=== PATIENT | female | born 1965 | race Caucasian/White ===

== ENCOUNTER 2025-03-02 10:53 | Outpatient (AMB) | payer MEDICARE, OTHER, SELFPAY ==
[2025-03-02 10:56] VITALS: BMI 28.3
--- NOTE | 2025-03-02 10:56 | A.PHYSOV ---
Vital Signs 03/02/25 10:56 Height 4 ft 11 in Weight 140 lb BMI 28.3 Intake Visit Reasons: left shoulder injection & discuss back inj Intake Note: Patient is fa 60 year old female here to follow up to left C7-T1 zayda on 01/06/25 and for a left shoulder injection. 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 Robert Lechuga is a 60-year-old female seen in evaluation today for cervical radiculopathy. Patient underwent C7-T1 ZAYDA on 01/07/2020 T5. Patient reports 80% reduction of her pain. She reports less numbness of the left upper extremity as well as a improved range of motion of her cervical spine. She is overall very happy with her results. Patient reports 10/02 right-sided low back pain consistent with sacroiliitis. She underwent her last right SI joint injection on 10/11/2024 with 70% reduction of her pain. She reports that her pain has worsened despite performing her physician directed home exercise plan and using her medications as prescribed. Patient is also requesting left subacromial injection today. Her last was in September. Procedure: C7-T1 ZAYDA 09/10/2023 60% reduction of her pain C7-T1 ZAYDA 04/14/2024 80% reduction of her pain Right SI joint injection 04/14/2024 60% reduction of her pain Right SI joint injection 10/11/2024 70% reduction of her pain C7-T1 ZAYDA 01/06/2025 80% reduction of her pain Left subacromial injection 03/02/2025 [facility], [facility] Medical History (Updated 03/02/25 @ 16:47 by CHERRI Cason) Hypercholesterolemia Hypertension End stage renal disease Coronary disease Surgical History Kidney transplanted Social History Alcohol intake: current Alcohol intake frequency: does not drink Patient Tobacco Use Status: Never used Tobacco Use of substances other than those prescribed or required for medical reasons: No Review of Systems Narrative Neck pain, low back pain left shoulder pain, no weakness or incontinence. Physical Exam Exam Exam: Cervical Spine: Examination of the cervical spine, she is less tender to the left upper trapezius. Full range of motion of her cervical spine. Special Tests: Axial Compression test: Negative Spurlings test: Negative Lhermitte's sign is Negative Upper Extremities: She is tender to the left lateral deltoid. Full range of motion of her shoulder in all planes. 5/5 rotator cuff strength throughout. She has a positive Neer test. Neuro: Sensation: Intact to upper extremities bilateral to light touch Strength C5 (Elbow Flexion): 5/5 on the left and 5/5 on the right. C6 (Elbow Ext): 5/5 on the left and 5/5 on the right. C7 (Elbow Ext): 5/5 on the left and 5/5 on the right. C8 (Finger Flex): 5/5 on the left and 5/5 on the right. T1 (Finger Abd/Add): 5/5 on the left and 5/5 on the right. DTR: C5 (Biceps): Left 2 Right 2 C6 (Brachioradialis): Left 2 Right 2 C7 (Triceps): Left 2 Right 2 Galindo sign: Negative No pathologic clonus. No involuntary movement. Lumbar Spine: Examination of her lumbar spine, there is no visible swelling or deformity. She is tender to lower lumbar facets. She is otherwise nontender. Full range of motion of her lumbar spine. Special Tests: Lhermittes sign was negative Heel Toe walk is normal Left straight leg raise: Negative Right straight leg raise: Negative Special tests Jenny test is positive right Ganslen's test is positive right SI Joint compression test positive right Izzy test negative Piriformis stretch is negative Lower Extremities: Full range of motion bilateral lower extremities. No calf pain or edema. Neuro: Sensation: Intact to lower extremities bilaterally Strength L2 (Psoas): 5/5 on the left and 5/5 on the right. L3 (Quads): 5/5 on the left and 5/5 on the right. L4 (Ant tibialis): 5/5 on the left and 5/5 on the right. L5 (EHL) 5/5 on the left and 5/5 on the right. S1 (Gastroc): 5/5 on the left and 5/5 on the right. DTR L4: (Patellar) Left 2 Right 2 S1: (Achilles) Left 2 Right 2 Babinski Downgoing No pathologic clonus. No involuntary movement. Vital Signs: BMI result Body Mass Index 28.3 Office Procedures AMB Shoulder Injection AMB Shoulder Injection Procedure Details: Left Subacromial injection Procedure: The patient was educated about risks, complications and benefits including but not limited to increased serum glucose, infection, nerve damage, bleeding, tendon/ligament damage and pain. We agree with a subacromial injection is the next best step in the treatment plan. Verbal consent was obtained. Using aseptic technique, the skin was cleansed with Betadine. Ethyl chloride was used to desensitize the skin. Using a posterior approach, 40 mg of Kenalog and 3 mL 2% lidocaine were injected using a 25-gauge inch and a half needle into the subacromial space. The patient tolerated the procedure well without immediate complication. Postinjection instructions were given. Shoulder Injection - : Right All charges added?: Procedure code (CPT) selection complete Office Meds Kenalog 40 mg/mL suspension for injection Performing Provider: CHERRI Cason Performing Location: [facility] Administered by: CHERRI Cason on 03/02/25 16:54 Dose Route Admin Location Dispensed Lot Number Expiration Date [facility] Field Operations Coordinator 40 mg intra-articular 1 mL [id number] [employer] Total Dispensed Waste 1 mL 0 % lidocaine (PF) 20 mg/mL (2 %) injection solution Performing Provider: CHERRI Cason Performing Location: [facility] Administered by: CHERRI Cason on 03/02/25 16:54 Dose Route Admin Location Dispensed Lot Number Expiration Date [facility] Field Operations Coordinator 60 mg intra-articular 50 mL [id number] Total Dispensed Waste 50 mL 0 % Assessment & Plan Assessment & Plan (1) Impingement syndrome of left shoulder: Code(s): M75.42 - Impingement syndrome of left shoulder Category: Medical (2) Sacroiliitis: Code(s): M46.1 - Sacroiliitis, not elsewhere classified Category: Medical (3) Cervical radiculopathy: Code(s): M54.12 - Radiculopathy, cervical region Category: Medical Plan Ms. Robert Lechuga is a 60-year-old female seen in evaluation today for cervical radiculitis left upper extremity. Patient responded well to C7-T1 ZAYDA with 70% reduction of her pain. She will continue her home exercise plan and medications as prescribed. Patient underwent right SI joint injection on 10/11/2024. Patient reports 70% reduction of her pain. Her pain has returned despite performing her physician directed home exercise plan and using her medications as prescribed. Patient is requesting repeat SI joint injection which I will obtain prior authorization for. Today she consented to left subacromial injection. She was given post-injection instructions, recommend: Moist heat compresses for 15 minutes up to 5 times daily. She should avoid repetitive overhead activities. We discussed the benefits of proper nutrition and exercise to maintain a healthy body weight to improve longevity and function. We also discussed the benefits of proper lifting techniques, core strengthening and proper posture. Thank you for allowing me to participate in the care of your patient. Orders: Orders AMB Shoulder Injection Today M75.42 - Impingement syndrome of left shoulder Coding Level of Care Code Tele Est Pt Level 3 (33337) Diagnoses Impingement syndrome of left shoulder M75.42 Sacroiliitis M46.1 Cervical radiculopathy M54.12 CPT Codes AMB Shoulder Injection - Hip/Bursa Injection - : Right ([id number])
== END 2025-03-02 11:26 | disposition home or self-care (01) ==
LOC: HO.HPHYS 10:53
PROVIDERS: PCP Internal Medicine; Visit Provider Physician Assistant
DX: M75.42 Impingement syndrome of left shoulder (principal); M46.1 Sacroiliitis, not elsewhere classified; M54.12 Radiculopathy, cervical region
CPT/HCPCS: 20610; 99213

== ENCOUNTER → 2025-03-02 10:53 | Outpatient (BNVA) | payer MEDICARE, OTHER, SELFPAY | PROVIDERS: PCP Internal Medicine; Visit Provider Physician Assistant | DX: M75.42 Impingement syndrome of left shoulder (principal); M46.1 Sacroiliitis, not elsewhere classified; M54.12 Radiculopathy, cervical region | CPT/HCPCS: 20610; 99212; J2003; J3301 ==

== ENCOUNTER 2025-03-12 11:35 | Outpatient (AMB) | payer MEDICARE, SELFPAY ==
[2025-03-12 11:39] VITALS: BMI 28.3
--- NOTE | 2025-03-12 11:39 | A.PHYSOV_ITS ---
Vital Signs 03/12/25 11:39 Height 4 ft 11 in Weight 140 lb BMI 28.3 Intake Visit Reasons: RT HIP INJECTION and F/U after injection Intake Note: Patient is a 60 year old female here to follow up after left C7-T1 VIRIDIANA. Patient would also like right hip injection. 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 The patient reports new, sudden onset of knee pain. She has read her 2022 imaging report for her shoulder which noted bone marrow edema, and she was informed by a second opinion physician that this finding is more common in the knees and could be a side effect of one of her medications. At home, she has been icing and elevating her knees and uses a vibration plate for 15 minutes daily. Regarding her other chronic pain issues, she reports a prior C7-T1 VIRIDIANA on 01/06/2025 neck injection provided approximately 50% pain relief. She presented to today's visit for bilateral hip cortisone injections. Pain Description - Onset: The patient reports a sudden onset of knee pain. - Location: Pain is located in both knees and both hips. - Interventions: A prior neck injection provided 50% pain relief. Procedures: C7-T1 VIRIDIANA 01/06/2025 50% reduction of her pain Bilateral hip bursal injection 03/12/2025 - Imaging: The patient reports a 2022 imaging study noted bone marrow edema in her shoulder. [facility] Medical History (Updated 03/12/25 @ 17:43 by CHERRI Cason) Hypercholesterolemia Hypertension End stage renal disease Coronary disease Surgical History Kidney transplanted Social History Alcohol intake: current Alcohol intake frequency: does not drink Patient Tobacco Use Status: Never used Tobacco Review of Systems Narrative Review of Systems - Musculoskeletal: Reports new onset bilateral knee pain and ongoing bilateral hip pain. - Neurological: Denies wobbling as previously noted. Physical Exam Exam Exam: Physical Exam Cervical spine: Less tender to bilateral upper trapezius. She has improved range of motion of her cervical spine at end range throughout. Negative Spurling's maneuver. Full range of motion bilateral upper extremities. Equal truss designer strength bilaterally. Lumbar Spine: Nontender to palpation over lumbar spine. Full range of motion. Special Tests: Lhermittes sign was negative Heel Toe walk is normal Left straight leg raise: Negative Right straight leg raise: Negative Special tests Jenny test is negative Ganslen's test is negative SI Joint compression test negative Izzy test negative Piriformis stretch is negative Lower Extremities: Markedly tender to bilateral greater trochanteric bursa. Neuro: Sensation: Intact to lower extremities bilaterally Strength L2 (Psoas): 5/5 on the left and 5/5 on the right. L3 (Quads): 5/5 on the left and 5/5 on the right. L4 (Ant tibialis): 5/5 on the left and 5/5 on the right. L5 (EHL) 5/5 on the left and 5/5 on the right. S1 (Gastroc): 5/5 on the left and 5/5 on the right. DTR L4: (Patellar) Left 2 Right 2 S1: (Achilles) Left 2 Right 2 Babinski Downgoing No pathologic clonus. No involuntary movement. Vital Signs: BMI result Body Mass Index 28.3 Office Procedures AMB Hip Injection AMB Hip Injection Procedure Details: Bilateral Greater trochanteric bursal injection: The risks, benefits and complications of the left greater trochanteric bursitis/gluteal tendinopathy were discussed with the patient, including but not limited to infection, increased serum glucose, nerve damage, bleeding and pain. All questions were answered to the patient's satisfaction. Verbal consent was obtained. The pa tient was eager to proceed. Patient was cleansed with Betadine, ethyl chloride was then used to desensitize the skin. Using an a 25-gauge needle 40 mg of Kenalog and 3 mL 2% lidocaine were injected over the left greater trochanter of maximal tenderness. The patient tolerated the procedure well without immediate complication. Postinjection instructions were given. The procedure was repeated on the right. Hip (Bursa) Injection - : Bilateral All charges added?: Procedure code (CPT) selection complete Office Meds Kenalog 40 mg/mL suspension for injection Performing Provider: CHERRI Cason Performing Location: [facility] Administered by: CHERRI Cason on 03/12/25 17:46 Dose Route Admin Location Dispensed Lot Number Expiration Date [facility] Flat Polisher 40 mg intrabursal 1 mL [id number] [employer] 2 Total Dispensed Waste 1 mL 0 % lidocaine (PF) 20 mg/mL (2 %) injection solution Performing Provider: CHERRI Cason Performing Location: [facility] Administered by: CHERRI Cason on 03/12/25 17:46 Dose Route Admin Location Dispensed Lot Number Expiration Date [facility] [employer]isher 60 mg intrabursal 5 mL [id number] [employer] Total Dispensed Waste 5 mL 40 % Assessment & Plan Assessment & Plan (1) Cervical radiculopathy: Code(s): M54.12 - Radiculopathy, cervical region Category: Medical (2) Greater trochanteric bursitis of both hips: Code(s): M70.61 - Trochanteric bursitis, right hip; M70.62 - Trochanteric bursitis, left hip Category: Medical Plan Pain Management - Analgesia: The patient notes her prior neck injection resulted in 50% pain improvement. - Adverse Effects: The patient expressed concern that bone marrow edema, a finding noted on prior shoulder imaging, may be a side effect of one of her c urrent medications. - Activities of Daily Living: The patient is performing daily vibration plate therapy for 15 minutes. - Aberrant Drug Related Behaviors: None discussed. Plan Patient was informed and verbally consented to the use of an ambient scribe for clinic note documentation during this visit. 1. Bilateral Hip Pain The patient presented for management of bilateral hip pain. She received bilateral cortisone injections during the visit and reported immediate improvement in her right hip post-injection. 2. Bilateral Knee Pain The patient reports new onset of bilateral knee pain and is concerned about the possibility of bone marrow edema as a medication side effect. It was explained that an X-ray would show arthritis while an MRI would be needed to assess for bone marrow edema. The patient decided to defer imaging at this time and will discuss the matter with her other physician. A prescription for physical therapy for her knees was provided. 3. Chronic Neck Pain The patient reports her prior neck injection provided 50% relief. No changes to the current management plan were made at this visit. Discussion Notes I discussed the patient's new onset knee pain and her concern about bone marrow edema. I explained that an X-ray would be appropriate to assess for arthritis, but an MRI is required to visualize bone marrow edema. The patient elected to postpone imaging to discuss this further with her other doctor. I agreed to her request for a physical therapy referral for her knees. We proceeded with planned bilateral hip cortisone injections for her hip pain. Patient Instructions - You were given bilateral hip cortisone injections today. - For your knee pain, continue icing and elevating your legs. - Try to avoid using a knee brace, as this can weaken the muscles. - A prescription for physical therapy for your knees has been provided. - Please follow up with your doctor in [place] to discuss your knee pain and concerns about medication side effects. Orders: Orders AMB Hip/Bursa Injection Today M70.61 - Trochanteric bursitis, right hip, M70.62 - Trochanteric bursitis, left hip Coding Level of Care Code Tele Est Pt Level 3 (86243) Diagnoses Cervical radiculopathy M54.12 Greater trochanteric bursitis of both hips M70.61; M70.62 CPT Codes AMB Hip Injection - Hip/Bursa Injection - : Bilateral ([id number])
--- OUTSIDE RECORDS SUMMARY | 2025-03-12 14:00 | XMS_ITS | Encounter Summary ---
Author Organization [facility] Address [address] [place] [address] Care Team Providers Care Route Contractor Name Role Phone Hannah Browne MD Primary Care Provider [phone] Reason for Visit * Reason Comments Consult PRODUCTION SORTER - R HAND MASS Pain PRODUCTION SORTER - R HAND MASS Mass PRODUCTION SORTER - R HAND MASS * Consultation (Routine) - Authorized Specialty Diagnoses / Procedures Referred By Ann-Marie calhoun Referred To Contact Hand Surgery / Orthopaedic Surgery Diagnoses Mass of right hand Shayna Keith NP 175 [facility] [address] [place] [address] Phone: tel: fax: Orthopedic Surgery [facility] 175 [facility] [address] [place] [address] Phone: tel: fax: Referral ID Status Reason Start Date Expiration Date Visits Requested Visits Authorized [id number] Authorized Specialty Services Required 02/13/2026 1 1 Encounter Details Date Type Department Care Team ([facility] st Contact Info) Description 03/12/2025 2:00 PM EST Consult Orthopedic Surgery [facility] 175 [facility] [address] [place] [address] Sloane Rodriguez PA 175 [facility] [address] [place] [address] Dupuytren's disease of finger with nodules without contracture (Primary Dx) Social History Tobacco Use Types Packs/Day Years Used Date Smoking Tobacco: Never Smokeless Tobacco: Never Alcohol Use Standard Drinks/Week Comments Never 0 (1 standard drink = 0.6 oz pur e alcohol) Housing Instability Answer Date Recorde d Are you worried that in the next 2 months you may not have stable housing? Patient declined 02/12/2025 Food Access & Nutrition Answer Date Rec orded Do you have access to a vari ety of food including fruits and vegetables? Patient declined 02/12/2025 Health Literacy Answer Date Recorded How often do you need to hav e someone help you when you read instructions, pamphlets, or other written material from your doctor or pharmacy? Patient declined 02/12/2025 Caregiver: How often do you need to have someone help you when you read instructions, pamphlets, or other written material from your doctor or pharmacy? Not on file 025 Financial Risk Answer Date Recorded How hard is it for you to pa y for the very basics like food, housing, medical care, and air conditioning / heating? Patient declined 02/12/2025 Transportation Answer Date Recorded Has the lack of transportati on kept you from meetings, work, or from getting things needed for daily living? Patient declined 02/12/2025 Has the lack of transportati on kept you from medical appointments or from getting medications? Patient declined 02/12/2025 Social Isolation Answer Date Recorded How often do you feel lonely or isolated from those around you? Patient declined 02/12/2025 Food Risk Answer Date Recorded Within the past 12 months we worried whether our food would run out before we got money to buy more. Patient declined 025 Within the past 12 months th e food we bought just didn't last and we didn't have money to get more. Patient declined 01/25 Dependent Care Answer Date Recorded Do you need help finding or paying for care for your loved ones. For example, child specialist or elderly care for an older adult? Patient declined 02/12/2025 Education Answer Date Recorded Do you think completing more education or training, like finishing a GED, going to college, or learning a trade, would be helpful for you? Patient declined 02/12/2025 Employment and Income Answer Date Recor ded During the last four weeks, have you been actively looking for work? Patient declined 02/12/2025 Living Situation Answer Date Recorded What is your living situation? Unrecognized valu e 02/12/2025 Interpersonal Safety Answer Date Record ed Physical Abuse Unrecognized value 01/06/2025 Verbal Abuse Unrecognized value 01/06/2025 Comments No Sex and Gender Information Value Date Recorded Sex Assigned at Female 01/23/2024 9:38 AM EDT Legal Sex Female 2:40 AM EST Gender Identity Female 01/23/2024 9:38 AM EDT Sexual Orientation Straight 01/23/2024 9: 38 AM EDT documented as of this encounter Last Filed Vital Signs Vital Sign Reading Time Taken Comments Blood Pressure - - Pulse - - Temperature - - Respiratory Rate - - Oxygen Saturation - - Inhaled Oxygen Concentration - - Weight 64.4 kg (142 lb) 03/12/2025 1:59 PM EST Height 149.9 cm (4' 11 ) 03/12/2025 1:59 PM EST Body Mass Index 28.68 03/12/2025 1:59 PM EST documented in this encounter Progress Notes * CHERRI Aguila - 03/12/2025 2:00 PM EST Referring MD:Shayna Keith, PRODUCTION SORTER Ms. Alcantar is a 60 y.o. year old female who presents for consultation regarding Chief Complaint Patient presents with Right Hand - Consult, Pain, Mass PRODUCTION SORTER - R HAND MASS . HPI: 60-year-old naozh-txat-opggouek female chief complaint mass at the palm of the right hand in the axis of the right ring finger. She noted it about a month ago. Is gotten slightly larger. She does getsome mild pain and tenderness with direct pressure over the area. No numbness tingling. Patient did have an ultrasound of the area with results below. 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 PAST MEDICAL HISTORY: Medical History[1] PAST SURGICAL HISTORY: Surgical History[2] ACTIVE PROBLEMS LIST: Problem List[3] ACTIVE MEDICATIONS: Medications Taking[4] ALLERGIES: Current Allergies[5] PHYSICAL EXAM: Visit Vitals Ht 1.499 m (59 ) Wt 64.4 kg (142 lb) BMI 28.68 kg/m?? OB Status Hysterectomy Smoking Status Never BSA 1.59 m?? APPEARANCE: Alert and in no acute distress EXTREMITIES: Right hand she has a Dupuytren's nodule at the palm of her hand in the axis of the right ring finger and the beginnings of a cord. Negative tabletop test. She can make a full fist. Thereis no triggering of the fingers. Hand is warm and well-perfused. LABS: None IMAGING: February 13 US. EXAM: SOFT TISSUES RIGHT HAND HISTORY: Mass palmar aspect right hand. TECHNIQUE: High-frequency linear transducer examination with attention to the area of clinical concern High-frequency linear transducer targeting an area of palpable concern in the palmar aspect of the right hand FINDINGS: QUALITY: Adequate Palmar aspect superficial soft tissues right hand Area of palpable concern There is a fairly circumscribed homogeneous hypoechoic oval area of altered echotexture with long axis parallel. This is beneath the skin and superficial to the superficial fascia. There is no color signal or calcification. No evidence of a a foreign body. No evidence of soft tissue gas. This does not appear to involve the nerves or tendons. 02/23/25-0.8 x 0.2 x 0.6 cm No drainable fluid. IMPRESSION: Nonspecific circumscribed oval hypoechoic abnormality in the superficial tissues of the palm of theright hand. ASSESSMENT AND PLAN: 1. Dupuytren's disease of finger with nodules without contracture The details of the visit were reviewed with the patient. Pertinent history, and objective findings were reviewed, along with the diagnoses: Dupuytren's nodule and the beginnings of a cord. Went over diagnosis with patient. She was provided a handout on Dupuytren's disease. Discussed possibility of surgery but recommended just observation at this time. She will call for an appointment if symptoms were to worsen. Randi Ortiz acknowledges understanding of the above plan and agrees to follow recommendations and/or take medications as prescribed. CHERRI Aguila cc: Shayna Keith NP [1] Past Medical History: Diagnosis Date Allergic rhinitis 07/06/2017 DX:Allergic rhinitis Bursitis 08/31/2017 DX:Bursitis CAD (coronary atherosclerotic disease) 11/27/2017 DX:CAD (coronary atherosclerotic disease) Depression with anxiety 11/06/2016 DX:Depression with anxiety Fatigue 08/31/2017 DX:Fatigue Glomerulonephritis 09/23/2015 DX:Glomerulonephritis; COMMENT: s/p kidney transplant x 3. History of kidney transplant 04/01/2018 DX:History of kidney transplant; COMMENT: 3 transplants Hypertension 11/27/2017 DX:Hypertension Low back pain 04/14/2014 DX:Low back pain Lump, breast 04/15/2015 DX:Lump, breast; COMMENT: Hx abnormal mammo 10/11/2016 Multiple and ill-defined closed fractures of lower limb 12/24/2011 DX:Multiple and ill-defined closed fractures of lower limb Restless legs syndrome 08/06/2014 DX:Restless legs syndrome Right hip pain 08/31/2017 DX:Right hip pain Vitamin D deficiency 09/23/2015 DX:Vitamin D deficiency [2] Past Surgical History: Procedure Laterality Date CARDIAC CATHETERIZATION PROCEDURE: HISTORICAL CARDIAC CATH; COMMENT: stent placement SECTION PROCEDURE: HISTORICAL DELIVERY CHOLECYSTECTOMY PROCEDURE: HISTORICAL CHOLECYSTECTOMY HYSTERECTOMY PROCEDURE: HISTORICAL HYSTERECTOMY INCISIONAL HERNIA REPAIR PROCEDURE: NH IMPLANT MESH OPN HERNIA RPR/DEBRIDEMENT CLOSURE; COMMENT: x 2 NEPHRECTOMY kidney transplant OTHER SURGICAL HISTORY PROCEDURE: HISTORY OTHER; COMMENT: Laparoscopically Assisted Nephroureterectomy OTHER SURGICAL HISTORY PROCEDURE: HISTORY OTHER; COMMENT: hx gastric surgery OTHER SURGICAL HISTORY PROCEDURE: NH RENAL ALTRNSPLJ IMPLTJ GRF W/O AVIONIC TECHNICIAN NEPHRECTOMY; COMMENT: hx of 3 kidney transplants TONSILLECTOMY PROCEDURE: HISTORICAL TONSILLECTOMY [3] Patient Active Problem List Diagnosis Allergic rhinitis Bursitis CAD (coronary atherosclerotic disease) Depression with anxiety Fatigue Glomerulonephritis Hypertension Restless legs syndrome Vitamin D deficiency Right hip pain Lump, breast Low back pain Hypomagnesemia Insomnia Obstructive sleep apnea Hyperlipidemia Gastroesophageal reflux disease without esophagitis Closed fracture of lower limb Class 1 obesity with serious comorbidity and body mass index (BMI) of 30.0 to 30.9 in adult Kidney replaced by transplant Chronic systolic congestive heart failure (CMS/HCC V24, CMS/HCC V28) Ascending aorta dilatation (CMS/HCC V24) [4] No outpatient medications have been marked as taking for the 03/12/25 encounter (Consult) with CHERRI Garces. [5] Allergies Allergen Reactions Oxycodone Hives SWELLING documented in this encounter Plan of Treatment Upcoming Encounters Date Type Department Care Team (Late st Contact Info) Description 04/09/2025 8:00 AM EST Office Visit Bariatric Surgery - [place] 175 [facility] [address] [place] [phone] Shey Catalan PA [address] [place] [phone] 05/21/2025 8:45 AM EST Office Visit Internal Medicine - [place] 175 [facility] 200 [place] [phone] Hannah Browne MD [address] [place] [phone] documented as of this encounter Visit Diagnoses Diagnosis Dupuytren's disease of finger with nodules without contracture- Primary documented in this encounter Orders Outpatient Referral Count Last Ordered Date Fir st Ordered Date AMB REFERRAL TO HAND SURGERY 1 03/12/2025 documented in this encounter Additional Health Concerns Assessment Noted Time PHQ-9 Depression Total Score: 0 02/13/20 25 4:20 PM EST documented as of this encounter Care Teams Route Contractor Relationship Specialty Start Date End Date Hannah Browne MD 175 [facility] [address] [place] [phone] PCP - General Internal Medicine 02/07/18 documented as of this encounter
--- OUTSIDE RECORDS SUMMARY | 2025-03-12 15:15 | XMS_ITS | Clinical Summary ---
Author Organization [facility] Address [address] [place] [address] Care Team Providers Care Compliance And Control Analyst Name Role Phone Hannah Browne MD Primary Care Provider [phone] Social History Tobacco Use Types Packs/Day Years Used Date Smoking Tobacco: Never Assessed Comments Unknown Sex and Gender Information Value Date Recorded Sex Assigned at Female 09/13/2022 1:59 PM EDT Legal Sex Female 12:08 PM EDT Gender Identity Female 09/13/2022 1:59 PM EDT Sexual Orientation Heterosexual (straight) 09/13 1:59 PM EDT Plan of Treatment Health Maintenance Due Date Last Done Comments Hepatitis C Virus Screening 1967 HIV Screening 02/12/1980 DTaP/Tdap/Td Vaccines (1 - Tdap) 1986 Hepatitis B Vaccines (1 of 3 - 19+ 3-dose series) 1986 Pap Smear (Ages 21-65) 02/12/1988 Mammogram 2007 Colonoscopy 02/12/2012 Pneumococcal Vaccines 50+ (1 of 1 - PCV) 2017 Zoster (Shingles) Vaccine (1 of 2) 2017 Influenza Vaccine 10/24/2024 COVID-19 Vaccine (5 - 2024-2 6 season) 2024 04/08/2021, 09/30/2020, 05/10/2020, Additional history exists RSV Vaccine 50 years and old er and Patients (1 - 1-dose 75+ series) 2042 Insurance [employer] MGD MEDICARE Care Teams Compliance And Control Analyst Relationship Specialty Start Date End Date Hannah Browne MD [address] [place] [address] [address] [address] PCP - General 02/09/21
--- OUTSIDE RECORDS SUMMARY | 2025-03-12 15:15 | XMS_ITS | Encounter Summary ---
Author Organization [facility] Address [address] [facility] 200 [place] [address] Phone Care Team Providers Care Electronic Equipment Repairmen Name Role Phone Hannah Browne MD Primary Care Provider [phone] Reason for Visit * Reason Comments Med Change Request Encounter Details Date Type Department Care Team (Late st Contact Info) Description 05/25/2021 Refill [facility] 100 [facility] 200 [place] [phone] Bg Martinez MD [address] [facility] [address] [place] [address] Social History Tobacco Use Types Packs/Day Years Used Date Smoking Tobacco: Never Smokeless Tobacco: Never Alcohol Use Standard Drinks/Week Comments Not Currently 0 (1 standard drink = 0.6 oz pure alcohol) Alcoholic Drinks/day: Occasional social drink Education Answer Date Recorded What is the highest level of school you have completed or the highest degree you have received? Master's degree (e.g., MA, MS, [place], MEd, TRANSPORTATION SOLUTIONS MANAGER, DEZ) 06/15/2020 Comments No Sex and Gender Information Value Date Recorded Sex Assigned at Not on file Legal Sex Female 5:14 PM EST Gender Identity Not on file Sexual Orientation Not on file Occupation Industry Job Start Date Job End Date retired Not on file Not on file Not on file COVID-19 Exposure Response Date Recorded In the last month, have you been in contact with someone who was confirmed or suspected to have Coronavirus / COVID-19? No / Unsure 05/24/2021 8:23 AM EST documented as of this encounter Plan of Treatment Upcoming Encounters Date Type Department Care Team (Late st Contact Info) Description 03/27/2025 11:00 AM EST Office Visit [facility] [address] [facility] [place] [phone] Yonathan Veliz MD [address] [facility] [place] [phone] documented as of this encounter Visit Diagnoses Not on filedocumented in this encounter Care Teams Electronic Equipment Repairmen Relationship Specialty Start Date End Date Hannah Browne MD [address] [place] [phone] PCP - General Internal Medicine 10/09/23 documented as of this encounter
--- OUTSIDE RECORDS SUMMARY | 2025-03-12 15:15 | XMS_ITS | Encounter Summary ---
Author Organization [facility] Address [address] [place] [address] Phone Care Team Providers Care Design Technician Name Role Phone Hannah Browne MD Primary Care Provider [phone] Reason for Visit * Reason Comments Med Refill Encounter Details Date Type Department Care Team (Late Contact Info) Description 04/11/2023 Refill [facility] [address] [place] [phone] Griselda Ch MD Social History Tobacco Use Types Packs/Day Years Used Date Smoking Tobacco: Never Smokeless Tobacco: Never Alcohol Use Standard Drinks/Week Comments Not Currently 0 (1 standard drink = 0.6 oz pure alcohol) Alcoholic Drinks/day: Occasional social drink Education Answer Date Recorded What is the highest level of school you have completed or the highest degree you have received? Master's degree (e.g., ADAN, MS, Lashon, [place], MINE PRODUCTION ENGINEER, DEZ) 06/15/2020 Comments No Sex and Gender Information Value Date Recorded Sex Assigned at Not on file Legal Sex Female 5:14 PM EST Gender Identity Not on file Sexual Orientation Not on file Occupation Industry Job Start Date Job End Date retired Not on file Not on file Not on file documented as of this encounter Plan of Treatment Upcoming Encounters Date Type Department Care Team (Late st Contact Info) Description 03/27/2025 11:00 AM EST [facility] [address] [place] [address] Yonathan Veliz MD [address] [place] [address] [place] [address] documented as of this encounter Visit Diagnoses Not on filedocumented in this encounter Care Teams Design Technician Relationship Specialty Start Date End Date Hannah Browne MD [address] [place] [phone] PCP - General Internal Medicine 10/09/23 documented as of this encounter
--- OUTSIDE RECORDS SUMMARY | 2025-03-12 15:15 | XMS_ITS | Encounter Summary ---
Author Organization [facility] Address [address] [place] [address] Care Team Providers Care Golf Course Patroller Name Role Phone Hannah Browne MD Primary Care Provider [phone] Encounter Details Date Type Department Care Team ([facility] st Contact Info) Description 02/26/2025 Results Follow-Up Internal Medicine - [place] 175 [facility] [address] [place] [phone] Shayna Keith NP 175 [facility] 200 [place] [address] Social History Tobacco Use Types Packs/Day Years [...] care for your loved ones. For example, childcare aide or elderly care for an older adult? [...] AM EDT documented as of this encounter Plan of Treatment Upcoming Encounters Date Type Department Care Team (Late st Contact Info) Description 04/09/2025 8:00 AM EST Office Visit Bariatric Surgery - [address] [place] [phone] Shey Catalan PA [address] [place] [phone] 05/21/2025 8:45 AM EST Office Visit Internal Medicine - [place] 175 [facility] 200 [place] [phone] Hannah Browne MD [address] [place] [phone] documented as of this encounter Visit Diagnoses Not on filedocumented in this encounter Additional Health Concerns Assessment Noted Time PHQ-9 Depression Total Score: 0 02/13/20 25 4:20 PM EST documented as of this encounter Care Teams Golf Course Patroller Relationship Specialty Start Date End Date Hannah Browne MD 175 [facility] 200 [place] [phone] PCP - General Internal Medicine 02/07/18 documented as of this encounter
--- OUTSIDE RECORDS SUMMARY | 2025-03-12 15:15 | XMS_ITS | Clinical Summary ---
Author Organization [facility], Address [address] [place] [address] [place] [address] Phone Care Team Providers Care Line Tester Name Role Phone Hannah Browne MD Primary Care Provider [phone] Allergies Active Allergy Reactions Criticality Noted Date Comments Chlorhexidine 09/27/2022 pt was using to clean catheter and she says she broke out in a rash Oxycodone-Acetaminophen 06/07/2020 Medications fluticasone (FLONASE) 50 MCG/ACT nasal spray 04/29/19 21 Active ondansetron ODT (Zofran ODT) 4 MG dispersible tablet Take 1 tablet (4 mg total) by mouth every 8 (eight) hours if needed for nausea or vomiting 90 tablet 3 10/05/19 22 Active estradiol (CLIMARA) 0.0375 MG/24HR APPLY ONE PATCH ONCE A WEEK 05/17/19 23 Active atorvastatin (LIPITOR) 10 MG tablet TAKE ONE TABLET BY MOUTH ONCE DAILY 30 tablet 3 02/03/20 23 Active traMADol (ULTRAM) 50 MG tablet Take 50 mg by mouth every 6 (six) hours if needed 03/14/20 23 Active sertraline (ZOLOFT) 100 MG tablet 04/02/19 24 Active Ajovy 225 MG/1.5ML solution auto-injector Inject 225 mg under the skin every 28 (twenty-eight) days 04/24/19 24 Active nitroglycerin (Nitrostat) 0.[address] 1 tablet (0.4 mg total) under the tongue 1 (one) time each day As needed 10/10/19 24 Active predniSONE 5 MG tablet Take 1.5 tablets (7.5 mg total) by mouth 1 (one) time each day 135 tablet 07/04/19 25 026 Active losartan (Cozaar) 50 MG tabletIndications:Hyp ertension,Stage 3a chronic kidney disease (HCC),Personal history of immunosuppression therapy,Hyperparathyr oidism due to renal insufficiency (HCC),Hyperlipidemia, not otherwise specified,Kidney replaced by transplant,Hypomagnes emia,Other abnormal glucose,Iron deficiency anemia, not otherwise specified,BK virus nephropathy,Cytomegal oviral disease, not otherwise specified (HCC) Take 2 tablets (100 mg total) by mouth 1 (one) time each day 180 tablet 07/22/19 25 026 Active valGANciclovir (Valcyte) 450 MG tabletIndications:Kid flo replaced by transplant,Stage 3a chronic kidney disease (HCC),Personal history of immunosuppression therapy,Cytomegalovir us infection ([facility]) Take 1 tablet (450 mg total) by mouth in the morning and 1 tablet (450 mg total) in the evening. Do not crush or chew. 60 tablet 11 07/24/19 25 026 Active magnesium oxide 400 (240 Mg) MG tablet Take 400 mg by mouth in the morning and 400 mg in the evening. 90 tablet 07/31/19 25 026 Active Mycophenolate Sodium (Mycophenolic Acid) 360 MG tablet delayed-release Take 360 mg by mouth in the morning and 360 mg in the evening. 180 tablet 08/06/19 25 026 Active rOPINIRole (REQUIP) 0.25 MG tabletIndications:Res tless Leg Syndrome Take 1 tablet (0.25 mg total) by mouth at night if needed (restless leg syndrome) 90 tablet 09/23/19 25 026 Active amLODIPine (NORVASC) 10 MG tablet Take 10 mg by mouth 1 (one) time each day Active metoprolol tartrate 25 MG tabletIndications:Vinh ign hypertension Take 1.5 tablets (37.5 mg total) by mouth in the morning and 1.5 tablets (37.5 mg total) in the evening. 270 tablet 11/08/19 25 026 Active Tacrolimus ER (Envarsus XR) 1 MG tablet sustained-release 24 hourIndications:Madeleine y replaced by transplant Take 3 mg by mouth 1 (one) time each day Take with an additional 1- 4 mg tab for a total daily dose of 7 mg 90 tablet 11 11/20/19 25 Active Tacrolimus ER (Envarsus XR) 4 MG tablet sustained-release 24 hourIndications:Kidne y replaced by transplant,Stage 3a chronic kidney disease (HCC),Personal history of immunosuppression therapy,Cytomegalovir us infection (HCC) Take 4 mg by mouth 1 (one) time each day Take with an additional 3- 1 mg tabs for a total daily dose of 7 mg 30 tablet 11 11/20/19 Active torsemide (DEMADEX) 20 MG tabletIndications:Janna rsosi replaced by transplant Take 1 tablet (20 mg total) by mouth 1 (one) time each day 90 tablet 3 02/10/20 25 Active Active Problems Problem Noted Date Diagnosed Date 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 Personal history of immunosuppression therapy Stage 3a chronic kidney disease 10/10/2023 Intermittent claudication 01/25/20232023 Leukopenia 10/28/2022 Obese class I 09/27/2022 Measurement finding above reference range 2021 Cardiomyopathy 10/25/2021 Overview (09/27/2022): Added automatically from request for surgery [id number] Glomerulonephritis 10/25/2021 Hyperparathyroidism due to renal insufficiency 0 07/20/2021 Benign hypertension 05/03/2021 Stented coronary artery 05/03/2021 Hyperlipidemia 05/03/2021 Edema of lower extremity 05/03/2021 Dyspnea on exertion 05/03/2021 Chest pain at rest 05/03/2021 Coronary atherosclerosis 05/03/2021 Atherosclerotic heart diseas e of [place] coronary artery with angina pectoris 06/15/2020 Chronic anemia 05/03/2020 Kidney replaced by transplant 05/03/2020 Long-term drug therapy 05/03/2020 Proteinuria 05/03/2020 Transient cerebral ischemia 05/03/2020 Resolved Problems Problem Noted Date Diagnosed Date Resolved Date Dependence on renal dialysis 08/29/2021 05/30/2022 Stage 5 chronic kidney disease 08/09/2021 05/30/2022 End-stage renal disease 07/20/2021 03/0 09/2022 Pericardial effusion - noninflammatory 07/20/2021 05/30/2022 Flushing 05/03/2021 09/08/2021 Family history of cholecystectomy 05/03/2021 08/15/2022 Hypercholesterolemia 05/03/2021 023 Stage 3b chronic kidney disease 06/07/2020 09/08/2021 Anemia in chronic kidney disease 05/03/2020 05/30/2022 Hypertensive heart disease w [facility] heart failure 05/03/2020 05/30/2022 Chronic kidney disease stage 4 05/03/2020 05/30/2022 Kidney biopsy result abnormal 04/18/2005 05/30/2022 Overview (05/03/2021): suspicious for acr- pred retaper; chronic CNI toxcity; tx glomerulopathy protocol #2; chnages are moderate compared to prior Bx neg acr; can grade 2-3; calcineurin toxcity; 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 Transplant of kidney 12/05/1994 022 Overview (05/03/2021): Current Immuno Regime: Pred 7.5 mg qd; Rapamune 6 mgs qd ( range 12-15 )Per Transplant Protocol Pt to have Full Labs & FLP in November & May with 24 hr Urine Collection in Novemberdeceased donor tx Encounters Date Type Department Care Team Description 02/09/2025 Orders Only [facility] [address] [place] [address] Alice Brown MA Kidney replaced by transplant 01/30/2025 Orders Only [facility] [address] [place] [address] Mariela Dumont, RN Stage 3a chronic kidney disease (HCC) (Primary Dx); Personal history of immunosuppression therapy; Kidney replaced by transplant 01/30/2025 Telephone [facility] [address] [place] [address] Alice Brown MA 01/16/2025 11:15 AM EDT Clinical Support [facility] [address] [place] [address] Mariela Dumont RN Stage 3a chronic kidney disease (HCC) (Primary Dx); Kidney replaced by transplant; Need for prophylactic vaccination and inoculation against influenza 01/16/2025 11:00 AM EDT Office Visit [facility] [address] [place] [address] Yonathan Veliz MD Kidney replaced by transplant (Primary Dx); Personal history of immunosuppression therapy; Chronic kidney disease, stage 2 (mild); BK virus nephropathy; Cytomegalovirus infection (HCC); Hypertension 12/31/2024 Orders Only [facility] [address] [place] [phone] Alice Brown MA Kidney replaced by transplant (Primary Dx); Stage 3a chronic kidney disease (HCC); Personal history of immunosuppression therapy; Hyperlipidemia, not otherwise specified; Hypomagnesemia; Poor glycemic control; Other iron deficiency anemia; Other specified hypoparathyroidism (HCC); Albuminuria, not otherwise specified from Last 3 Months Immunizations Immunization Administration Dates Next Due Hep B, Unspecified 01/30/2022,11/07/2021, 022 Influenza Split High Dose Pr eservative Free IM 12/24/2017,12/30/2014 Influenza, Recombinant, PF 01/16/2025 Influenza, Trivalent, Adjuvanted 12/11/2018 Pfizer SARS-COV-2 04/08/2021,,09/30/2020,05/10,04/19/2020 Pneumococcal Conjugate 13-Valent 03/30/2018 Pneumococcal Polysaccharide 03/30/2018 SARS-CoV-2, Unspecified 09/30/2020 Tdap 12/11/2018,09/23/2015 Family History Medical History Relation Comments Cancer Father Heart disease Father Hypertension Father Stroke Father Relation Status Comments Father Mother Alive Social History Tobacco Use Types Packs/Day Years [...] Master's degree (e.g., MA, MS, [place], MEd, [employer], [employer]) 06/15/2020 Comments No Sex and Gender Information Value Date Recorded Sex Assigned at Not on file Legal Sex Female 5:14 PM EST Gender Identity Not on file Sexual Orientation Not on file Occupation Industry Job Start Date Job End Date retired Not on file Not on file Not on file Last Filed Vital Signs Vital Sign Reading Time Taken Comments Blood Pressure 144/70 11/07/2024 10:58 AM EDT Pulse 70 08/27/2023 8:31 AM EDT Temperature - - Respiratory Rate - - Oxygen Saturation 99% 08/27/2023 8:31 AM EDT Inhaled Oxygen Concentration - - Weight 68 kg (150 lb) 11/07/2024 10:58 AM EDT Height 149.9 cm (4' 11 ) 02/08/2024 9:06 AM EST Body Mass Index 30.3 02/08/2024 9:06 AM EST Plan of Treatment Upcoming Encounters Date Type Department Care Team (Late st Contact Info) Description 03/27/2025 11:00 AM EST Office Visit [facility] [address] [place] [phone] Yonathan Veliz MD [address] [place] [address] [place] [phone] Health Maintenance Due Date Last Done Comments Breast Cancer Screening 1965 Hepatitis B Vaccine (1 of 3 - 19+ 3-dose series) 1986 01/30/2022, 11/07/2021, 09/28/2021 Colonoscopy (Post-Transplant Patient) 05/03/2020 Mammogram (Post-Transplant Patient) 05/03/2020 Pelvic Exam (Post-Transplant Patient) 05/03/2020 Pneumococcal Vaccine: 50+ Ye ars (3 of 3 - PCV20 or PCV21) 03/30/2023 03/30/2018, 03/30/2018 Pneumococcal Vaccine: Peds ( 0 to 5 Years) and At-Risk Patients (6 to 49 Years) Discontinued 03/30/2018, 03/30/2018 Influenza Vaccine Completed 01/16/2025, , 12/24/2017, Additional history exists Procedures Procedure Name Priority Date/Time Associated Diagnosis Comments TACROLIMUS, HIGHLY SENSITIVE, LC/MS/MS Routine 02/27/2025 9:50 AM EST RENAL FUNCTION PANEL Routine 02/27/2025 9:49 AM EST Stage 3a chronic kidney disease (HCC) Personal history of immunosuppression therapy Kidney replaced by transplant CBC AND DIFFERENTIAL Routine 02/27/2025 9:49 AM EST Stage 3a chronic kidney disease (HCC) Personal history of immunosuppression therapy Kidney replaced by transplant CMV DNA, QUANTITATIVE, PCR Routine 02/27/2025 9:49 AM EST Stage 3a chronic kidney disease (HCC) Personal history of immunosuppression therapy Kidney replaced by transplant URINALYSIS, COMPLETE Routine 01/14/2025 9:44 AM EDT Kidney replaced by transplant Stage 3a chronic kidney disease (HCC) Personal history of immunosuppression therapy Hyperlipidemia, not otherwise specified Hypomagnesemia Poor glycemic control Other iron deficiency anemia Other specified hypoparathyroidism (HCC) Albuminuria, not otherwise specified URINE ALBUMIN / CREATININE RATIO Routine 01/14/2025 9:44 AM EDT Kidney replaced by transplant Stage 3a chronic kidney disease (HCC) Personal history of immunosuppression therapy Hyperlipidemia, not otherwise specified Hypomagnesemia Poor glycemic control Other iron deficiency anemia Other specified hypoparathyroidism (HCC) Albuminuria, not otherwise specified PTH, INTACT Routine 01/14/2025 9:44 AM EDT Kidney replaced by transplant Stage 3a chronic kidney disease (HCC) Personal history of immunosuppression therapy Hyperlipidemia, not otherwise specified Hypomagnesemia Poor glycemic control Other iron deficiency anemia Other specified hypoparathyroidism (HCC) Albuminuria, not otherwise specified IRON PANEL (FE, TIBC, TSAT) Routine 01/14/2025 9:44 AM EDT Kidney replaced by transplant Stage 3a chronic kidney disease (HCC) Personal history of immunosuppression therapy Hyperlipidemia, not otherwise specified Hypomagnesemia Poor glycemic control Other iron deficiency anemia Other specified hypoparathyroidism (HCC) Albuminuria, not otherwise specified FERRITIN Routine 01/14/2025 9:44 AM EDT Kidney replaced by transplant Stage 3a chronic kidney disease (HCC) Personal history of immunosuppression therapy Hyperlipidemia, not otherwise specified Hypomagnesemia Poor glycemic control Other iron deficiency anemia Other specified hypoparathyroidism (HCC) Albuminuria, not otherwise specified CREATINE KINASE Routine 01/14/2025 9:44 AM EDT Kidney replaced by transplant Stage 3a chronic kidney disease (HCC) Personal history of immunosuppression therapy Hyperlipidemia, not otherwise specified Hypomagnesemia Poor glycemic control Other iron deficiency anemia Other specified hypoparathyroidism (HCC) Albuminuria, not otherwise specified ALT Routine 01/14/2025 9:44 AM EDT Kidney replaced by transplant Stage 3a chronic kidney disease (HCC) Personal history of immunosuppression therapy Hyperlipidemia, not otherwise specified Hypomagnesemia Poor glycemic control Other iron deficiency anemia Other specified hypoparathyroidism (HCC) Albuminuria, not otherwise specified AST Routine 01/14/2025 9:44 AM EDT Kidney replaced by transplant Stage 3a chronic kidney disease (HCC) Personal history of immunosuppression therapy Hyperlipidemia, not otherwise specified Hypomagnesemia Poor glycemic control Other iron deficiency anemia Other specified hypoparathyroidism (HCC) Albuminuria, not otherwise specified HEMOGLOBIN A1C Routine 01/14/2025 9:44 AM EDT Kidney replaced by transplant Stage 3a chronic kidney disease (HCC) Personal history of immunosuppression therapy Hyperlipidemia, not otherwise specified Hypomagnesemia Poor glycemic control Other iron deficiency anemia Other specified hypoparathyroidism (HCC) Albuminuria, not otherwise specified MAGNESIUM Routine 01/14/2025 9:44 AM EDT Kidney replaced by transplant Stage 3a chronic kidney disease (HCC) Personal history of immunosuppression therapy Hyperlipidemia, not otherwise specified Hypomagnesemia Poor glycemic control Other iron deficiency anemia Other specified hypoparathyroidism (HCC) Albuminuria, not otherwise specified CBC AND DIFFERENTIAL Routine 01/14/2025 9:44 AM EDT Kidney replaced by transplant Stage 3a chronic kidney disease (HCC) Personal history of immunosuppression therapy Hyperlipidemia, not otherwise specified Hypomagnesemia Poor glycemic control Other iron deficiency anemia Other specified hypoparathyroidism (HCC) Albuminuria, not otherwise specified RENAL FUNCTION PANEL Routine 01/14/2025 9:44 AM EDT Kidney replaced by transplant Stage 3a chronic kidney disease (HCC) Personal history of immunosuppression therapy Hyperlipidemia, not otherwise specified Hypomagnesemia Poor glycemic control Other iron deficiency anemia Other specified hypoparathyroidism (HCC) Albuminuria, not otherwise specified MYCOPHENOLIC ACID AND METABO. Routine 01/14/2025 9:44 AM EDT Kidney replaced by transplant Stage 3a chronic kidney disease (HCC) Personal history of immunosuppression therapy Hyperlipidemia, not otherwise specified Hypomagnesemia Poor glycemic control Other iron deficiency anemia Other specified hypoparathyroidism (HCC) Albuminuria, not otherwise specified TACROLIMUS, HIGHLY SENSITIVE, LC/MS/MS Routine 01/14/2025 9:44 AM EDT Kidney replaced by transplant Stage 3a chronic kidney disease (HCC) Personal history of immunosuppression therapy Hyperlipidemia, not otherwise specified Hypomagnesemia Poor glycemic control Other iron deficiency anemia Other specified hypoparathyroidism (HCC) Albuminuria, not otherwise specified MICROSCOPIC EXAMINATION - DO NOT USE Routine 01/14/2025 9:44 AM EDT from Last 3 Months Results * Tacrolimus, Highly Sensitive, LC/MS/MS (02/27/2025 9:50 AM EST) Only the most recent of2 resultswithin the time period is included. Pathologist [facility] Tacrolimus by Immunoassay 5.1 5.0 - 20.0 ng/mL [facility] Comment: Detection Limit = 0.8 ng/mL Target steady state trough concentration for Tacrolimus varies based on type of organ transplant immunosuppressive protocol and other patient specific factors. Tacrolimus trough concentrations should be interpreted in conjunction with clinical assessments of rejection and tolerability. Values obtained with different assay methods cannot be used interchangeably due to differences in assay methods and cross-reactivty with metabolites, nor should correction factors be applied. Therefore, consistent use of one assay for individual patients is recommended. Tacrolimus assay performed by [employer]. 02/27/2025 9:50 AM EST 02/27/2025 Yonathan Veliz MD LAB BLOOD ORDERABLES Final Result Performing Organization Address [facility] de Phone Number [facility] [address] [place] [address] * CMV PCR Quantitative (02/27/2025 9:49 AM EST) Pathologist [facility] CMV Quant DNA PCR Negative Negative IU/mL [facility] Comment: No CMV DNA detected. The quantitative range of this assay is 200 to 1 million IU/mL. Log 10 CMV QN DNA Plasma CANCELED log10 IU/mL [facility] Comment: Unable to calculate result since non-numeric result obtained for component test. Result canceled by the ancillary. Blood Venous blood / Unknown 02/27/2025 9:49 AM EST 02/27/2025 Yonathan Veliz MD LAB BLOOD ORDERABLES Edite d Result - Final Performing Organization Address [facility] de Phone Number [facility] [place] [address] [place] [address] * CBC and differential (02/27/2025 9:49 AM EST) Only the most recent of2 resultswithin the time period is included. [facility] WBC 3.9 3.4 - 10.8 x10E3/uL [facility] RBC 4.09 3.77 - 5.28 x10E6/uL [facility] Hemoglobin 12.3 11.1 - 15.9 g/dL [facility] Hematocrit 37.7 34.0 - 46.6 % [facility] MCV 92 79 - 97 fL [facility] MCH 30.1 26.6 - 33.0 pg [facility] MCHC 32.6 31.5 - 35.7 g/dL [facility] RDW 12.7 11.7 - 15.4 % [facility] Platelets 171 150 - 450 x10E3/uL [facility] Neutrophils Relative 68 Not Estab. % [facility] Lymphocytes Relative 21 Not Estab. % [facility] Monocytes 8 Not Estab. % [facility] Eosinophils Relative 2 Not Estab. % [facility] Basophils Relative 1 Not Estab. % [facility] Neutrophils Absolute 2.6 1.4 - 7.0 x10E3/uL [facility] Lymphocytes Absolute 0.8 0.7 - 3.1 x10E3/uL [facility] Monocytes Absolute 0.3 0.1 - 0.9 x10E3/uL [facility] Eosinophils Absolute 0.1 0.0 - 0.4 x10E3/uL [facility] Basophils Absolute 0.0 0.0 - 0.2 x10E3/uL [facility] Immature Granulocytes 0 Not Estab. % [facility] Immature Grans (Absolute) 0.0 0.0 - 0.1 x10E3/uL [facility] Blood Venous blood / Unknown 02/27/2025 9:49 AM EST 02/27/2025 us Yonathan Veliz MD LAB BLOOD ORDERABLES Final Result [facility] [address] [place] [address] * (ABNORMAL) Renal function panel (02/27/2025 9:49 AM EST) Only the most recent of2 resultswithin the time period is included. Glucose 89 70 - 99 mg/dL [facility] BUN 24 6 - 24 mg/dL [facility] Creatinine 0.97 0.57 - 1.00 mg/dL [facility] eGFR CKD-EPI CR 2020 68 >59 mL/min/1.7 3 [facility] BUN/Creatinine Ratio 25(H) 9 - 23 [facility] Sodium 143 134 - 144 mmol/L [facility] Potassium 4.5 3.5 - 5.2 mmol/L [facility] Chloride 106 96 - 106 mmol/L [facility] Bicarbonate (CO2) 28 20 - 29 mmol/L [facility] Calcium 9.1 8.7 - 10.2 mg/dL [facility] Albumin 4.3 3.8 - 4.9 g/dL [facility] Phosphorus 4.1 3.0 - 4.3 mg/dL [facility] Blood Venous blood / Unknown 02/27/2025 9:49 AM EST 02/27/2025 Yonathan Veliz MD LAB BLOOD ORDERABLES Final Result [facility] [address], [address] [place] [address] * (ABNORMAL) Urinalysis, Complete w/reflex to Culture (01/14/2025 9:44 AM EDT) Specific [employer], Urine 1.024 1.005 - 1.030 [facility] pH Urine 6.0 5.0 - 7.5 [facility] [phone] Color, Urine Yellow Yellow [facility] Appearance Urine Clear Clear [facility] [place] WBC Esterase Urine Negative Negative [facility] [phone] Protein, Ur Trace Negative/Tra ce [facility] Glucose, Ur Negative Negative [facility] Ketones, Urine Trace(A) Negative [facility] [place] Blood Urine Negative Negative [facility] Bilirubin Urine Negative Negative [facility] [place] Urobilinogen Urine 1.0 0.2 - 1.0 mg/dL [facility] Nitrite, Urine Negative Negative [facility] [phone] Microscopic Examination Comment [facility] [phone] Comment:Microscopic follows if indicated. Other Microsc. Observations See below: [facility] Comment:Microscopic was bhavna cated and was performed. URINALYSIS REFLEX Comment [facility] Comment:This specimen will n ot reflex to a Urine Culture. Urine Urine specimen obtained by clean catch procedure / Unknown 01/14/2025 9:44 AM EDT 01/14/2025 us Yonathan Veliz MD LAB URINE ORDERABLES Final Result [facility] [address] [place] [address] * (ABNORMAL) Mycophenolic Acid and [employer]. (01/14/2025 9:44 AM EDT) Mycophenolic Acid 1.0 1.0 - 3.5 ug/mL [facility] Mycophenolic Acid Glucuronide 12(L) 35 - 100 ug/mL [facility] Blood Venous blood / Unknown 01/14/2025 9:44 AM EDT 01/14/2025 Narrative [facility] - 01/19/2025 4:06 PM EDT Test(s) 451642-Adldkztmaalt Acid; 514750- Mycophenolic Acid Glucuronide was developed and its performance characteristics determined by [employer]. It has not been cleared or approved by the Food and Drug Administration. Yonathan Veliz MD LAB BLOOD ORDERABLES Final Result [facility] [address] [place] [phone] * Microscopic Examination (01/14/2025 9:44 AM EDT) WBC, Urine 0-5 0 - 5 /hpf [facility] RBC, Urine 0-2 0 - 2 /hpf [facility] Squamous Epithelial, Urine 0-10 0 - 10 /hpf [facility] Casts None seen None seen /lpf [facility] Bacteria, Urine None seen None seen/Few [facility] 01/14/2025 9:44 AM EDT 01/14/2025 Yonathan Veliz MD LAB MICROBIOLOGY - GENERAL ORDERABLES Final Result [facility] [address] [place] [address] * Iron Panel (Fe, TIBC, TSAT) (01/14/2025 9:44 AM EDT) TIBC 308 250 - 450 ug/dL [facility] UIBC 236 131 - 425 ug/dL [facility] Iron 72 27 - 159 ug/dL [facility] Iron Saturation (TSat) 23 15 - 55 % [facility] Blood Venous blood / Unknown 01/14/2025 9:44 AM EDT 01/14/2025 Yonathan Veliz MD LAB BLOOD ORDERABLES Final Result Performing Organization Address [facility]/ZIP Co de Phone Number [facility] [address] [place] [address] * Urine Albumin / Creatinine Ratio (01/14/2025 9:44 AM EDT) Pathologist [facility] Creatinine, Ur 165.5 Not Estab. mg/dL [facility] Albumin, Urine 15.5 Not Estab. ug/mL [facility] Albumin/Creatin ine Ratio 9 0 - 29 mg/g creat [facility] Comment: Normal: 0 - 29 Moderately increased: 30 - 300 Severely increased: >300 Urine Urine specimen obtained by clean catch procedure / Unknown 01/14/2025 9:44 AM EDT 01/14/2025 Yonathan Veliz MD LAB URINE ORDERABLES Final Result Performing Organization Address [facility]/ZIP Co de Phone Number [facility] [place] [address] [place] [address] * (ABNORMAL) ALT (01/14/2025 9:44 AM EDT) ALT (SGPT) 38(H) 0 - 32 IU/L [facility] Blood Venous blood / Unknown 01/14/2025 9:44 AM EDT 01/14/2025 Yonathan Veliz MD LAB BLOOD ORDERABLES Final Result Performing Organization Address [facility]/ZIP Co de Phone Number [facility] [place] [address] [place] [address] * AST (01/14/2025 9:44 AM EDT) AST (SGOT) 28 0 - 40 IU/L [facility] [place] Blood Venous blood / Unknown 01/14/2025 9:44 AM EDT 01/14/2025 Yonathan Veliz MD LAB BLOOD ORDERABLES Final Result Performing Organization Address [facility] Co de Phone Number [facility] [employer] [place] [address] [place] [address] * (ABNORMAL) PTH, Intact (01/14/2025 9:44 AM EDT) PTH 68(H) 15 - 65 pg/mL [facility] [place] Blood Venous blood / Unknown 01/14/2025 9:44 AM EDT 01/14/2025 Yonathan Veliz MD LAB BLOOD ORDERABLES Final Result Performing Organization Address City/[facility] Co de Phone Number [employer] [employer] [facility] [place] [address] [place] [address] * Magnesium (01/14/2025 9:44 AM EDT) Magnesium 1.6 1.6 - 2.3 mg/dL [facility] [place] Blood Venous blood / Unknown 01/14/2025 9:44 AM EDT 01/14/2025 Yonathan Veliz MD LAB BLOOD ORDERABLES Final Result [facility] [place] [address] [place] [address] * Hemoglobin A1c (01/14/2025 9:44 AM EDT) Hemoglobin A1C 5.1 4.8 - 5.6 % [facility] [place] Comment: Prediabetes: 5.7 - 6.4 Diabetes: >6.4 Glycemic control for adults with diabetes: <7.0 Blood Venous blood / Unknown 01/14/2025 9:44 AM EDT 01/14/2025 Yonathan Veliz MD LAB BLOOD ORDERABLES Final Result Performing Organization Address [facility]/ZIP Co de Phone Number [facility] [place] [address] [place] [address] * (ABNORMAL) Ferritin (01/14/2025 9:44 AM EDT) Pathologist [facility] Ferritin 457(H) 15 - 150 ng/mL [facility] [place] Blood Venous blood / Unknown 01/14/2025 9:44 AM EDT 01/14/2025 Yonathan Veliz MD LAB BLOOD ORDERABLES Final Result Performing Organization Address City/[facility]/ZIP Co de Phone Number [facility] [place] [address] [place] [address] * (ABNORMAL) CK (01/14/2025 9:44 AM EDT) Creatine Kinase (CK/CPK) 31(L) 32 - 182 U/L [facility] [place] Blood Venous blood / Unknown 01/14/2025 9:44 AM EDT 01/14/2025 Yonathan Veliz MD LAB BLOOD ORDERABLES Final Result [facility] [place] [address] [place] [address] from Last [address] [place] [address] [employer] Medicare [facility] Medicare Care Teams Line Tester Relationship Specialty Start Date End Date Hannah Browne MD [address] [phone] PCP - General Internal Medicine 10/09/23
--- OUTSIDE RECORDS SUMMARY | 2025-03-12 15:15 | XMS_ITS | Clinical Summary ---
Author Organization 175 [facility] Address [address] [place] [address] Phone Care Team Providers Care Veterinary Virologist Name Role Phone Hannah Browne MD Primary Care Provider [phone] Allergies Active Allergy Reactions Criticality Noted Date Comments Oxycodone Hives High 01/06/2025 SWELLING Medications pantoprazole (PROTONIX) 20 mg EC tablet Take 1 Tablet by mouth daily. 11/12/19 22 Active metoprolol tartrate (LOPRESSOR) 25 mg tablet Take 1 Tablet by mouth 2 times daily. 04/02/19 24 Active losartan (COZAAR) 100 mg tablet Take 1 Tablet by mouth daily. 04/02/19 24 Active atorvastatin (LIPITOR) 10 mg tablet Take 1 Tablet by mouth daily. 04/02/19 24 Active cholecalcifero l (VITAMIN D-3) 50 mcg (2,000 unit) tablet Take 1 Tablet by mouth daily. 04/02/19 24 Active tacrolimus (Envarsus XR) 1 mg extended release tablet Take by mouth. 6 tabs daily Active cycloSPORINE (Restasis MultiDose) 0.05 % drops Place 1 Drop into both eyes every 12 hours as needed. 01/14/20 21 Active aspirin 81 mg EC tablet Take 1 tablet by mouth daily. 01/28/20 21 Active triamcinolone acetonide (KENALOG-40) 40 mg/mL injection Inject 1 mL into the articular space once for 1 dose. 03/15/20 21 Active mycophenolate (MYFORTIC) 180 mg EC tablet Take 3 Tablets by mouth 2 times daily. Active magnesium oxide 400 mg magnesium capsule Take 2 Capsules by mouth daily. 01/08/20 20 Active predniSONE (DELTASONE) 5 mg tablet 1 and half tablet,total 7.5 mg 04/04/19 19 Active nitroglycerin (NITROSTAT) 0.4 mg SL tablet 0.4 mg. 10/11/19 13 Active clotrimazole-b etamethasone (LOTRISONE) 1-0.05 % cream APPLY THIN LAYER TO AFFECTED AREA TWICE A DAY FOR 2 WEEKS THEN STOP. AVOID FACE AND GROIN. 30 g 08/20/19 25 Active amLODIPine (NORVASC) 10 mg tablet Take 1 tablet (10 mg total) by mouth 1 (one) time each day. Active zolpidem (AMBIEN) 10 mg tablet TAKE 1 TABLET BY MOUTH AT BEDTIME NEEDED FOR INSOMNIA 28 tablet 1 12/23/19 25 Active fluticasone propionate (FLONASE) 50 mcg/actuation nasal spray ADMINISTER 1 SPRAY INTO EACH NOSTRIL 2 TIMES A DAY. 32 mL 2 01/10/20 25 Active estradioL (VIVELLE-DOT) 0.0375 mg/[address] 1 PATCH ON THE SKIN 2 TIMES A WEEK. 24 patch 2 02/03/20 25 Active sertraline (ZOLOFT) 100 mg tablet TAKE 1 TABLET BY MOUTH EVERY DAY 90 tablet 1 03/09/20 25 Active sertraline (ZOLOFT) 100 mg tablet TAKE 1 TABLET BY MOUTH EVERY DAY 90 tablet 1 09/16/19 25 025 Discontinued Wegovy 2.4 mg/0.75 mL injection pen Inject 2.4 mg under the skin every 7 (seven) days. 3 mL 01/30/20 25 025 Active Problems Problem Noted Date Diagnosed Date Chronic systolic congestive heart failure 2024 Assessment & Plan (12/17/2024 9:09 AM EDT): Ascending aorta dilatation 12/17/2024 Assessment & Plan (12/17/2024 9:09 AM EDT): Kidney replaced by transplant 03/04/2024 Assessment & Plan (12/17/2024 9:09 AM EDT): Class 1 obesity with serious comorbidity and body mass index (BMI) of 30.0 to 30.9 in adult 12/20/2023 Hypomagnesemia 04/02/2023 Assessment & Plan (12/17/2024 9:09 AM EDT): Insomnia 04/02/2023 Hyperlipidemia 04/02/2023 Assessment & Plan (12/17/2024 9:09 AM EDT): Gastroesophageal reflux disease without esophagi tis 04/02/2023 Obstructive sleep apnea 06/10/2018 Overview (12/20/2023): [facility] Home Polysomnogram: Date 06/06/2018; YOVANY 5, AI 0.6; HI 4.9; Unclassified apneas 0; Obstructive apneas 0; Central apneas 2; Mixed apneas 0; hypopneas 17; average oxygen saturation 91% (lowest 78% with saturations <88% for 5% or more of study) [facility] Polysomnogram treatment study. Date 10/29/2018. Wt 189#; BMI 38; SE 72 % SM 85 %; spent 15 % of the study in REM. On CPAP @ 10; RDI 2 (AHI 2), Central apneas 0; Obstructive apneas 0; Mixed apneas 1; hypopneas 3; RERAs 0; and, average oxygen saturation was 95%. For the entire study, PLMs ~3. - Obstructive Sleep Apnea - mild; mostly hypopneas; with sleep related hypoventilation by 2018 home polysomnogram. CAD (coronary atherosclerotic disease) 8 Hypertension 11/27/2017 Assessment & Plan (12/17/2024 9:09 AM EDT): Bursitis 08/31/2017 Fatigue 08/31/2017 Right hip pain 08/31/2017 Allergic rhinitis 07/06/2017 Depression with anxiety 11/06/2016 Glomerulonephritis 09/23/2015 Overview (12/20/2023): s/p kidney transplant x 3. Vitamin D deficiency 09/23/2015 Lump, breast 04/15/2015 Overview (12/20/2023): Hx abnormal mammo 10/11/2016 Restless legs syndrome 08/06/2014 Low back pain 04/14/2014 Closed fracture of lower limb 12/24/2011 Encounters Date Type Department Care Team Description 03/12/2025 2:00 PM EST Consult Orthopedic Surgery - [place] 175 [facility] [address] [place] [phone] Sloane Rodriguez, PA Dupuytren's disease of finger with nodules without contracture (Primary Dx) 02/26/2025 Results Follow-Up Internal Medicine - [place] 175 [facility] [address] [place] [address] Shayna Keith NP 02/23/2025 2:25 PM EST - 02/23/2025 11:59 PM EST Hospital Encounter [facility] Ultrasound [address] [place] [phone] Submandibular lymphadenopathy Discharge Disposition: Home or Self Care 02/23/2025 2:22 PM EST - 02/23/2025 11:59 PM EST Hospital Encounter [facility] Ultrasound [address] [place] [phone] Mass of right hand Discharge Disposition: Home or Self Care 02/13/2025 3:30 PM EST Office Visit Internal Medicine - [place] 175 [facility] [address] [place] [phone] Shayna Keith, KIARA Submandibular lymphadenopathy (Primary Dx); Mass of right hand 01/06/2025 12:34 PM EDT Anesthesia Event [facility] Pain Management [address] [place] [phone] Alfa Finnegan MD Swanson, Mona, MELONY 01/06/2025 11:46 AM EDT - 01/06/2025 11:59 PM EDT Hospital Encounter [facility] Xray [address] [place] [phone] Pain Discharge Disposition: Home or Self Care 01/06/2025 11:21 AM EDT - 01/06/2025 11:59 PM EDT Hospital Encounter [facility] Pain Management [address] [place] [phone] Arnoldo Angel DO Saliga, Jesse L, MD Swanson, Mona, CRNA Radiculopathy, cervical region Discharge Disposition: Home or Self Care 12/17/2024 8:15 AM EDT Office Visit Internal Medicine - [place] 175 [facility] [address] [place] [address] Hannah Browne MD Primary hypertension (Primary Dx); Hypomagnesemia; Kidney replaced by transplant; Mixed hyperlipidemia; Chronic systolic congestive heart failure (CMS/HCC V24, CMS/HCC V28); Ascending aorta dilatation (CMS/HCC V24); Encounter for subsequent annual wellness visit (AWV) in Medicare patient from Last 3 Months Immunizations Immunization Administration Dates Next Due Influenza trivalent, with pr eservative (Fluzone; Afluria) 6mo and older 12/11/2018 [employer] SARS-CoV-2 COVID-19, mRNA, LNP-S, preservative free 05/10/2020,04/19/2020 Tdap Tetanus diptheria acell ular pertussis (Boostrix; Adacel) 7yo and older 12/11/2018,09/23/2015 Surgical History Surgery Date Site/Laterality Comments OTHER SURGICAL HISTORY PROCEDURE: HISTORY OTHER; COMMENT: Laparoscopically Assisted Nephroureterectomy CHOLECYSTECTOMY PROCEDURE: HISTORICAL CHOLECYSTECTOMY SECTION PROCEDURE: HISTORICAL DELIVERY HYSTERECTOMY PROCEDURE: HISTORICAL HYSTERECTOMY CARDIAC CATHETERIZATION PROCEDURE: HISTORICAL CARDIAC CATH; COMMENT: stent placement OTHER SURGICAL HISTORY PROCEDURE: HISTORY OTHER; COMMENT: hx gastric surgery OTHER SURGICAL HISTORY PROCEDURE: OR RENAL ALTRNSPLJ IMPLTJ 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; COMMENT: hx of 3 kidney transplants INCISIONAL HERNIA REPAIR PROCEDURE: OR IMPLANT MESH OPN HERNIA RPR/DEBRIDEMENT CLOSURE; COMMENT: x 2 TONSILLECTOMY PROCEDURE: HISTORICAL TONSILLECTOMY NEPHRECTOMY kidney transplant Medical History Medical History Date Comments History of kidney transplant 04/01/2018 DX: History of kidney transplant; COMMENT: 3 transplants Allergic rhinitis 07/06/2017 DX:Allergic rh initis Bursitis 08/31/2017 DX:Bursitis CAD (coronary atherosclerotic disease) 11/27/2017 DX:CAD (coronary atherosclerotic disease) Depression with anxiety 11/06/2016 DX:Depre ssion with anxiety Fatigue 08/31/2017 DX:Fatigue Glomerulonephritis 09/23/2015 DX:Glomerulon ephritis; COMMENT: s/p kidney transplant x 3. Hypertension 11/27/2017 DX:Hypertension Restless legs syndrome 08/06/2014 DX:Restle ss legs syndrome Vitamin D deficiency 09/23/2015 DX:Vitamin D deficiency Lump, breast 04/15/2015 DX:Lump, breast; COMMENT: Hx abnormal mammo 10/11/2016 Low back pain 04/14/2014 DX:Low back pain Right hip pain 08/31/2017 DX:Right hip darryl n Multiple and ill-defined madelyn sed fractures of lower limb 12/24/2011 DX:Multiple and ill-defined closed fractures of lower limb Family History Medical History Relation Name Comments Stroke Father CAD, hypertensi on, at 78 due to sepsis Relation Name Status Comments Father Social History Tobacco Use Types Packs/Day Years Used Date Smoking Tobacco: Never Smokeless Tobacco: Never Tobacco Cessation:Counseling Given: Not Answered Alcohol Use Standard Drinks/Week Comments Never 0 [...] for your loved ones. For example, child advocate or elderly care for an older adult? [...] Orientation Straight 01/23/2024 9: 38 AM EDT Last Filed Vital Signs Vital Sign Reading Time Taken Comments Blood Pressure 102/57 02/13/2025 3:26 PM EST Pulse 74 02/13/2025 3:26 PM EST Temperature 36.3 C (97.4 F) 02/13/2025 3:26 PM EST Respiratory Rate 14 01/06/2025 12:58 PM EDT Oxygen Saturation 96% 02/13/2025 3:26 PM EST Inhaled Oxygen Concentration - - Weight 64.4 kg (142 lb) 03/12/2025 1:59 PM EST Height 149.9 cm (4' 11 ) 03/12/2025 1:59 PM EST Body Mass Index 28.68 03/12/2025 1:59 PM EST Plan of Treatment Upcoming Encounters Date Type Department Care Team (Late st Contact Info) Description 04/09/2025 8:00 AM EST Office Visit Bariatric Surgery - [place] 175 [facility] [address] [place] [address] Shey Catalan PA [address] [place] [phone] 05/21/2025 8:45 AM EST Office Visit Internal Medicine - [place] 175 [facility] [address] [place] [phone] Hannah Browne MD [address] [place] [address] Health Maintenance Due Date Last Done Comments Drug Screen 1967 Non-Opioid Controlled Substance Agreement 1967 Diabetes: Annual Foot Exam 1977 Diabetes: Annual Retina Eye Exam 1977 Cervical Cancer Screening: Pap Smear 02/12/1988 RSV Immunization Adult Patients (1 - Risk 50-74 years 1-dose series) 2017 Pneumococcal Vaccine: 50+ Years (3 of 3 - PCV20 or PCV21) 03/30/2023 03/30/2018, 03/30/2018 Diabetes: Annual GFR (Glomerular Filtration Rate) 09/30/2024 10/01/2023, 10/01/2023, 10/25/2021 Hypertension/CHF/CAD Annual BMP Blood Test 09/30/2024 10/01/2023, 10/01/2023, 10/25/2021 COVID-19 Vaccine ( season) 2024 12/20/2023, 02/07/2023, 02/23/2022, Additional history exists Diabetes: Blood Sugar Control Test (HGBA1C) 07/15/2025 01/14/2025, 01/14/2025, 12/05/2024, Additional history exists Medicare Annual Wellness Visit 12/17/2025 12/17/2024 Diabetes: Annual Urine Albumin-Creatinine Ratio (uACR) 01/14/2026 01/14/2025, 10/31/2024, 09/02/2024, Additional history exists Social Influencers of Health Screening 02/12/2026 02/12/2025 Breast Cancer Screening 09/08/2026 09/08/2024 DTaP,Tdap,and Td Vaccines (3 - Td or Tdap) 12/11/2028 12/11/2018, 09/23/2015 Cholesterol Screening (Lipid Panel) 12/05/2029 12/05/2024, 10/16/2024, 09/02/2024, Additional history exists Colorectal Cancer Screening: Colonoscopy 03/18/2030 03/18/2020 HIV Screening Completed 10/25/2021 Hepatitis B Vaccines Completed 01/30/2022, 11/07/2021, 09/28/2021 Zoster Vaccines Completed 09/01/2022, 02/23/2022 Hepatitis C Screening Completed 10/31/2024 , 10/31/2024, 10/31/2024, Additional history exists Influenza Vaccine Completed 01/16/2025, , 02/07/2023, Additional history exists Depression Screening Completed 02/12/2025 HIB Vaccines Aged Out No longer eligi ble based on patient's age to complete this topic HPV Vaccines Aged Out No longer eligi ble based on patient's age to complete this topic Hepatitis A Vaccines Aged Out No long er eligible based on patient's age to complete this topic IPV Vaccines Aged Out No longer eligi ble based on patient's age to complete this topic MMR Vaccines Aged Out No longer eligi ble based on patient's age to complete this topic Meningococcal ACWY Vaccine Aged Out N o longer eligible based on patient's age to complete this topic Meningococcal B Vaccine Aged Out No l onger eligible based on patient's age to complete this topic RSV Immunization Patients Under 20 months Aged Out No longer eligible based on patient's age to complete this topic Varicella Vaccines Aged Out No longer eligible based on patient's age to complete this topic Medical Devices Implanted Type Area Ethanol Maintenance Mechanic Device Identifier Shelf Expiration Date Model / Serial / Lot Other Cardiac Implant Other Cardiac Implant N/A: Heart Procedures Procedure Name Priority Date/Time Associated Diagnosis Comments US HEAD NECK SOFT TISSUE Routine 02/23/2025 3:06 PM EST Submandibular lymphadenopathy US EXTREMITY NONVASCULAR LIMITED RIGHT Routine 02/23/2025 3:05 PM EST Mass of right hand EXTERNAL MAMMOGRAM REPORT 09/08/2024 ANNUAL BMP BLOOD TEST Routine 10/01/2023 HEMOGLOBIN A1C Routine 04/02/2023 LIPID PANEL Routine 04/02/2023 HIV SCREENING Routine 10/25/2021 HEPATITIS C SCREENING Routine 07/20/2021 COLONOSCOPY Routine 03/18/2020 from Last 3 Months or Most Recently Relevant to Health Maintenance Results * US Head Neck Soft Tissue (02/23/2025 3:06 PM EST) Anatomical Region Laterality Modality Head and Neck Ultrasound 02/26/2025 10:2 4 AM EST Impressions 02/26/2025 10:25 AM EST No mass or other abnormality is demonstrated at the area of clinical concern in the left submandibular area. -------- FINAL REPORT -------- Dictated By: Jimbo Corona Dictated Date: 02/26/2025 10:24 ET Assigned Physician: Jimbo Corona Reviewed and Electronically Signed By: Jimbo Corona Signed Date: 02/26/2025 10:25 ET Workstation ID: [id number] Transcribed By: Self Edit Transcribed Date: 02/26/2025 10:24 ET Narrative 02/26/2025 10:25 AM EST HISTORY: The patient is a 60-year-old female with provided history of swelling in the left submandibular area. FINDINGS: Real-time ultrasonography of the area of clinical concern is performed. The submandibular gland is visualized and is of normal appearance. No cystic or solid mass, architectural distortion, or other abnormality is seen. Procedure Note Jimbo Corona MD - 02/26/2025 HISTORY: The patient is a 60-year-old female with provided history ofswelling in the left submandibular area. FINDINGS: Real-time ultrasonography of the area of clinical concern isperformed. The submandibular gland is visualized and is of normalappearance. No cystic or solid mass, architectural distortion, or otherabnormality is seen. IMPRESSION: No mass or other abnormality is demonstrated at the area of clinicalconcern in the left submandibular area. -------- FINAL REPORT -------- Dictated By: Jimbo Corona Dictated Date: 02/26/2025 10:24 ET Assigned Physician: Jimbo Corona Reviewed and Electronically Signed By: Jimbo Corona Signed Date: 02/26/2025 10:25 ET Workstation ID: [id number] Transcribed By: Self Edit Transcribed Date: 02/26/2025 10:24 ET us Shayna Keith NP IMG US PROCEDURES Final Result * US Extremity Nonvascular Limited Right (02/23/2025 3:05 PM EST) Anatomical Region Laterality Modality Extremity Right Ultrasound 03/03/2025 11:5 5 AM EST Impressions 03/03/2025 11:58 AM EST Nonspecific circumscribed oval hypoechoic abnormality in the superficial tissues of the palm of the right hand. The patient should be managed on the basis of the physical exam and history. -------- FINAL REPORT -------- Dictated By: Rui Vuong Dictated Date: 03/03/2025 11:55 ET Assigned Physician: Rui Vuong Reviewed and Electronically Signed By: Rui Vuong Signed Date: 03/03/2025 11:58 ET Workstation ID: [id number] Transcribed By: Self Edit Transcribed Date: 03/03/2025 11:55 ET Narrative 03/03/2025 11:58 AM EST EXAMINATION: US. EXAM: SOFT TISSUES RIGHT HAND HISTORY: [...] 0.2 x 0.6 cm No drainable fluid. Procedure Note Rui Vuong MD - 03/03/2025 EXAMINATION: US. EXAM: SOFT TISSUES RIGHT HAND HISTORY: Mass palmar aspect right hand. TECHNIQUE: High-frequency linear transducer examination with attention to the area ofclinical concern High-frequency linear transducer targeting an area of palpable concern inthe palmar aspect of the right hand FINDINGS: QUALITY: Adequate Palmar aspect superficial soft tissues right hand Area of palpable concern There is a fairly circumscribed homogeneous hypoechoic oval area ofaltered echotexture with long axis parallel. This is beneath the skin andsuperficial to the superficial fascia. There is no color signal orcalcification. No evidence of a a foreign body. No evidence of soft tissuegas. This does not appear to involve the nerves or tendons. 02/23/25-0.8 x 0.2 x 0.6 cm No drainable fluid. IMPRESSION: Nonspecific circumscribed oval hypoechoic abnormality in the superficialtissues of the palm of the right hand. The patient should be managed on the basis of the physical exam andhistory. -------- FINAL REPORT -------- Dictated By: Rui Vuong Dictated Date: 03/03/2025 11:55 ET Assigned Physician: Rui Vuong Reviewed and Electronically Signed By: Rui Vuong Signed Date: 03/03/2025 11:58 ET Workstation ID: [id number] Transcribed By: Self Edit Transcribed Date: 03/03/2025 11:55 ET Shayna Keith NP IMG US PROCEDURES Final Result * External Mammogram Report (09/08/2024) Anatomical Region Laterality Modality Mammography Provider [facility] IMG BI PROCEDURES Final Result * Annual BMP Blood Test (10/01/2023) Annual BMP Blood Test abstracted Result [facility] Provider HEALTH MAINTENANCE Final Result * (ABNORMAL) Lipid panel (04/02/2023) [facility] LDL/HDL Ratio 3 0 - 4 Triglycerides 129 0 - 150 mg/dL Cholesterol 183 0 - 200 mg/dL HDL 56 >=40 mg/dL LDL Cholesterol 102(A) 0 - 100 mg/dL Blood Venous blood specimen / Unknown Result [facility] Provider LAB BLOOD ORDERABLES Rebecca l Result * HIV Screening (10/25/2021) [facility] HIV Screening abstracted Result [facility] Provider HEALTH MAINTENANCE Final Result * Hepatitis C Screening (07/20/2021) [facility] Hepatitis C Screening abstracted Result [facility] Provider HEALTH MAINTENANCE Final Result * Colonoscopy (03/18/2020) [facility] Colonoscopy no interpretation , abstracted Anatomical Region Laterality Modality Other Result [facility] Provider HEALTH MAINTENANCE Final Result from Last 3 Months or Most Recently Relevant to Health Maintenance Insurance [employer] MEDICARE ADVANTAGE [facility] Care Teams Veterinary Virologist Relationship Specialty Start Date End Date Hannah Browne MD [address] [place] [phone] PCP - General Internal Medicine 02/07/18
--- OUTSIDE RECORDS SUMMARY | 2025-03-12 15:15 | XMS_ITS | Encounter Summary ---
Author Organization [facility] Address [address] [facility] [address] [place] [address] Phone Care Team Providers Care Fire Investigation Manager Name Role Phone Hannah Browne MD Primary Care Provider [phone] Reason for Visit * Reason Comments Med Change Request Encounter Details Date Type Department Care Team (Late st Contact Info) Description 05/25/2023 Refill [facility] [address] [facility] [address] [place] [phone] Mike Castro MD [address] [place] [address] Kidney replaced by transplant Social History Tobacco Use Types Packs/Day Years [...] Master's degree (e.g., MA, MS, [place], MEd, GEM CARVER, DEZ) 06/15/2020 Comments No Sex and Gender [...] Visit [facility] [address] [place] [phone] Yonathan Veliz MD [address] [place] [phone] documented as of this encounter Visit Diagnoses Diagnosis Kidney replaced by transplant documented in this encounter Care Teams Fire Investigation Manager Relationship Specialty Start Date End Date Hannah Browne MD [address] [place] [address] [address] [place] [phone] PCP - General Internal Medicine 10/09/23 documented as of this encounter
--- OUTSIDE RECORDS SUMMARY | 2025-03-12 15:15 | XMS_ITS | Encounter Summary ---
Author Organization [facility] Address [address] [place] [address] Phone Care Team Providers Care Silver Steward Name Role Phone Hannah Browne MD Primary Care Provider [phone] Reason for Visit * Reason Comments Med Refill Encounter Details Date Type Department Care Team (Late st Contact Info) Description 02/08/2024 Refill [facility] [address] [facility] [address] [place] [address] James Solis MD [address] [facility] [address] [place] [phone] Benign hypertension Social History Tobacco Use Types Packs/Day Years [...] Master's degree (e.g., MA, MS, [place], MEd, SPEED BELT SANDER TENDER, DEZ) 06/15/2020 Comments No Sex and Gender [...] Visit [facility] [address] [place] [phone] Yonathan Veliz MD [address] [place] [phone] documented as of this encounter Visit Diagnoses Diagnosis Benign hypertension documented in this encounter Care Teams Silver Steward Relationship Specialty Start Date End Date Hannah Browne MD [address] [place] [address] [address] [place] [phone] PCP - General Internal Medicine 10/09/23 documented as of this encounter
--- OUTSIDE RECORDS SUMMARY | 2025-03-12 15:15 | XMS_ITS | Encounter Summary ---
Author Organization [facility], Address [address] [place] [phone] Phone Care Team Providers Care Plant Specialist Name Role Phone Hannah Browne MD Primary Care Provider [phone] Encounter Details Date Type Department Care Team (Late st Contact Info) Description 03/23/2022 Documentation Only [facility], [address] [place] [phone] Yonathan Veliz MD [address] [facility] [address] [place] [phone] Social History Tobacco Use Types Packs/Day Years [...] Master's degree (e.g., MA, MS, Lashon, MEd, PRODUCTION SCHEDULER, DEZ) 06/15/2020 Comments No Sex and Gender [...] Visit [facility] [address] [place] [phone] Yonathan Veliz MD [address] [facility] [address] [place] [address] documented as of this encounter Visit Diagnoses Not on filedocumented in this encounter Care Teams Plant Specialist Relationship Specialty Start Date End Date Hannah Browne MD [address] [place] [address] [address] [place] [phone] PCP - General Internal Medicine 10/09/23 documented as of this encounter
--- OUTSIDE RECORDS SUMMARY | 2025-03-12 15:16 | XMS_ITS | Clinical Summary ---
Author Organization [facility] Address [address] [place] [address] Care Team Providers Care [employer] Name Role Phone Hollie Hannah Abdelrahman Primary Care Provider [phone] Allergies Active Allergy Reactions Criticality Noted Date Comments Oxycodone-Acetaminophen Hives 10/21/2024 Medications amLODIPine (NORVASC) 10 mg tablet 10 mg once a day. 10/01/19 25 Active Envarsus XR 1 mg tablet extended release 24 hr 6.75 tablets daily. Active torsemide (DEMADEX) 20 mg tablet 20 mg. Active zolpidem (AMBIEN) 10 mg tablet Take 10 mg by mouth nightly as needed. insomnia 01/24/20 24 Active metoprolol tartrate (LOPRESSOR) 25 mg tablet 25 mg 2 times a day. Active losartan (COZAAR) 100 mg tablet 100 mg. 12/21/19 24 Active aspirin 81 mg EC tablet 81 mg. 08/11/19 25 Active atorvastatin (LIPITOR) 10 mg tablet 10 mg nightly. 10/20/[address] (PROTONIX) 20 mg tablet 40 mg once a day. Ac tive Ajovy Autoinjector 225 mg/1.5 mL auto-injector INJECT 225MG SUBCUTANEOUSLY EVERY 28 DAYS DIRECTED 08/24/19 25 Active fluticasone propionate (FLONASE) 50 mcg/actuation nasal spray SMARTSI [place](s) Both Nares Twice Daily Active sertraline (ZOLOFT) 100 mg tablet Take 100 mg by mouth once a day. 04/21/19 22 Active Wegovy 1.7 mg/0.75 mL pen injector 1.7 mg once a week. 08/20/19 24 Active rOPINIRole (REQUIP) 0.25 mg tablet Take 0.25 mg by mouth once daily as needed. 07/21/19 22 026 Active estradioL (VIVELLE-DOT) 0.0375 mg/24 hr 2 times a week. Active MAGNESIUM GLYCINATE ORAL Take by mouth. Active predniSONE (DELTASONE) 5 mg tablet Take 5 mg by mouth once a day. Active Social History Tobacco Use Types Packs/Day Years Used Date Smoking Tobacco: Never Assessed Comments Unknown Sex and Gender Information Value Date Recorded Sex Assigned at Female 09/30/2024 9:07 AM EDT Legal Sex Female 9:04 AM EDT Gender Identity Female 10/19/2024 10:02 AM EDT Sexual Orientation Straight 10/19/2024 10 :02 AM EDT Last Filed Vital Signs Vital Sign Reading Time Taken Comments Blood Pressure 130/78 10/21/2024 8:33 AM EDT Pulse 72 10/21/2024 8:33 AM EDT Temperature 36.2 C (97.2 F) 10/21/2024 8:33 AM EDT Respiratory Rate - - Oxygen Saturation - - Inhaled Oxygen Concentration - - Weight 67.1 kg (147 lb 14.9 oz) 10/21/2024 8:33 AM EDT Height - - Body Mass Index - - Plan of Treatment Health Maintenance Due Date Last Done Comments Cervical Cancer Screening 1967 Cologuard 1967 FOBT / Fit Test 1967 HIV Screening 1967 HPV and Pap Smear 1967 Pap Smear 1967 Sigmoidoscopy 1967 Hepatitis B Vaccines (1 of 3 - 19+ 3-dose series) 1986 01/30/2022, 11/07/2021, 09/28/2021 Zoster Vaccines (1 of 2) 1986 Pneumococcal Vaccine: 50+ Ye ars (3 of 3 - PCV20 or PCV21) 03/30/2023 03/30/2018, 03/30/2018 Alcohol/Substance Use Screening 03/26/2024 Depression Screening and Follow-Up 03/26/2024 Social Drivers of Health Temi ual Screening 03/26/2024 Influenza Vaccine (#1) 2024 9, 12/24/2017, 12/30/2014 COVID-19 Vaccine (5 - 2024-2 6 season) 2024 04/08/2021, 09/30/2020, 05/10/2020, Additional history exists Basic Metabolic Panel 10/16/2025 10/16/2024 , 10/09/2024, 09/02/2024, Additional history exists Mammogram 09/08/2026 09/08/2024, 08/24, 09/08/2024 DTaP,Tdap,and Td Vaccines (3 - Td or Tdap) 12/11/2028 12/11/2018, 09/23/2015 Colon Cancer Screening 03/18/2030 Colonoscopy 03/18/2030 03/18/2020 Hepatitis C Screening Completed 07/21/2024 , 07/21/2024, 10/25/2021 Procedures * Due to [place] Thing[employer] law, this organization might not be sharing negative HIV tests. Procedure Name Priority Date/Time Associated Diagnosis Comments HM MAMMOGRAPHY, BILATERAL 09/08/2024 HM COLONOSCOPY 03/18/2020 from Last 3 Months or Most Recently Relevant to Health Maintenance Results * Due to [place] [employer] law, this organization might not be sharing negative HIV tests. 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
== END 2025-03-12 12:42 | disposition home or self-care (01) ==
PROVIDERS: PCP Internal Medicine; Visit Provider Physician Assistant
DX: M54.12 Radiculopathy, cervical region (principal); M70.61 Trochanteric bursitis, right hip; M70.62 Trochanteric bursitis, left hip
CPT/HCPCS: 20610; 99213

== ENCOUNTER → 2025-03-12 11:35 | Outpatient (BNVA) | payer MEDICARE, OTHER, SELFPAY | PROVIDERS: PCP Internal Medicine; Visit Provider Physician Assistant | DX: M70.61 Trochanteric bursitis, right hip (principal); M70.62 Trochanteric bursitis, left hip; M54.12 Radiculopathy, cervical region; M25.561 Pain in right knee; M25.562 Pain in left knee; G89.29 Other chronic pain; M54.2 Cervicalgia | CPT/HCPCS: 20610; 99212; J2003; J3301 ==